=== PATIENT | female | born 1980 | race Caucasian/White ===

== ENCOUNTER 2021-09-05 12:30 | Emergency (ER) | payer BC ==
[~2021-09-05] VITALS: Ht 162.6 cm; Wt 56.7 kg
[2021-09-05 14:00] VITALS: BP_SYST 133
--- NOTE | 2021-09-05 14:31 | NUR ---
Pt presented to ED via ems with reported c/o attempted SI. Pt states she took approx 20 tablets of Tylenol PM between 1200 and 1900 on 09/04/2021 with intent to go to sleep and not wake up. Pt has previous hx of depression and psychiatric hospitalization. Pt in gown with room secured and SI procautions in place. Pt denies denies visual and auditory hallucinations. Pt AOx4, GCS 15 at time of interaction. Will continue to monitor pt.
--- NOTE | 2021-09-05 14:36 | NUR ---
ED doctor at bedside.
--- NOTE | 2021-09-05 14:37 | NUR ---
Pt was wanded by security.
[2021-09-05 14:57] LABS: HEMOGLOBIN 13.5 g/dL (12.0-16.0); WHITE BLOOD COUNT (AUTO) 6.5 K/uL (4.8-10.8)
[2021-09-05 15:00] LABS: ANION GAP 6 (5-15); CALCIUM 8.2 mg/dL (8.4-11.0); CHLORIDE 106 mmol/L (98-107); GLUCOSE 82 mg/dL (70-99); POTASSIUM 4.8 mmol/L (3.5-5.1); SODIUM SERUM 139 mmol/L (136-145); UREA NITROGEN, BLOOD 9 mg/dL (8-21)
[2021-09-05 15:02] LABS: GFR AFRICAN AMERICAN 88 mL/min (>90)
[2021-09-05 15:05] LABS: BASOPHILS # (AUTO) 0.1 K/uL (0.0-0.2); EOSINOPHILS % (AUTO) 0.7 % (0.0-4.0); HEMATOCRIT 39.1 % (36-48); LYMPHOCYTES # (AUTO) 1.6 K/uL (1.0-5.5); MEAN CORPUSCULAR HEMOGLOBIN 30 pg (27-31); MEAN CORPUSCULAR HGB CONC 35 % (32-36); MEAN CORPUSCULAR VOLUME 87 fL (79.0-98.0); MONOCYTES # (AUTO) 0.6 K/uL (0.0-1.0); MONOCYTES % (AUTO) 8.5 % (1.7-9.3); NEUTROPHILS # (AUTO) 4.3 K/uL (1.8-7.7); NEUTROPHILS % (AUTO) 65.8 % (40.0-70.0); PLATELET COUNT (AUTO) 208 K/uL (130-430); RED BLOOD CELL COUNT(AUTO) 4.48 MIL/uL (4.2-6.2); RED CELL DISTRIBUTION WIDTH 13.3 % (9.0-15.0)
[2021-09-05 15:06] LABS: CHOLESTEROL 164 mg/dL (<200); HDL CHOLESTEROL 51 mg/dL (>55); LDL CHOLESTEROL 95 mg/dL (<100); TRIGLYCERIDES 64 mg/dL (30-150)
[2021-09-05 15:15] LABS: ACETAMINOPHEN 3 ug/mL (1-30); ALANINE AMINOTRANSFERASE 15 U/L (12-78); ALBUMIN 3.7 g/dL (3.4-4.8); ASPARTATE AMINOTRANSFERASE 15 U/L (10-37); TOTAL BILIRUBIN 0.3 mg/dL (0.0-1.0)
[2021-09-05 15:15] LABS: BILIRUBIN,URINE NEGATIVE (NEGATIVE); BLOOD, URINE NEGATIVE (NEGATIVE); CLARITY/URINE CLEAR (CLEAR); COLOR,URINE YELLOW (YELLOW); GLUCOSE,URINE NEGATIVE (NEGATIVE); KETONES,URINE 1+ (NEGATIVE); LEUKOCYTE ESTERASE ,URINE NEGATIVE (NEGATIVE); NITRITE, URINE NEGATIVE (NEGATIVE); PROTEIN URINE NEGATIVE (NEGATIVE); UROBILINOGEN,URINE 0.2 (0.2-1.0)
[2021-09-05 15:27] LABS: BARBITURATE, URINE NEGATIVE (NEG <=200); BENZODIAZEPINE, URINE NEGATIVE (NEG <=150); CANNABINOID, URINE NEGATIVE (NEG <=50); COCAINE, URINE NEGATIVE (NEG <=150); METHAMPHETAMINES SCREEN,URINE NEGATIVE (NEG <=500); OPIATE, URINE NEGATIVE (NEG <=100); PHENCYCLIDINE SCREEN,URINE NEGATIVE (NEG <=25); UR TRICYCLIC ANTIDEPRESSANTS NEGATIVE (NEG <=300); URINE AMPHETAMINE NEGATIVE (NEG <=500); URINE METHADONE NEGATIVE (NEG <=200); URINE OXYCODONE SCREEN NEGATIVE (NEG <=100); URINE PROPOXYPHENE SCREEN NEGATIVE (NEG <=300)
[2021-09-05 16:14] LABS: ALCOHOL, BLOOD < 3 mg/dL (<10)
--- NOTE | 2021-09-05 16:21 | NUR ---
Pt in view of nurses station. Pt in no acute distress at this time. Will continue to monitor pt.
--- NOTE | 2021-09-05 18:10 | NUR ---
COVID AND MRSA SAMPLES SENT TO LAB 17:47.
--- NOTE | 2021-09-05 18:14 | NUR ---
Pt given a lunch box after pt requested something to eat
[2021-09-05 18:48] VITALS: BP_SYST 120
--- NOTE | 2021-09-05 18:49 | NUR ---
Pt in room crying at this time. Pt states that she needs something to help take the edge off. ED physician notified. Will continue to monitor pt
[2021-09-05] MEDS ORDERED: LORazepam 1 MG TABLET PO ONE (19:15)
--- NOTE | 2021-09-05 19:15 | NUR ---
Patient to be transferred to [place]. Is being transferred due to higher level of care. Receiving facility has accepting physician and available space. ER physician has signed transfer form. Patient or responsible democrat has agreed to transfer and signed form. Patient belongings inventoried and will be sent with patient. Copy of nursing notes, lab reports, EKG, Physicians Orders and X-rays to be sent with patient. Report called to INTAKE at receiving facility. Receiving physician WITH ROOM ASSIGNMENT. [facility] ambulance service has been called for transfer. ETA is 2200.
--- NOTE | 2021-09-05 19:45 | NUR ---
ASSUMED CARE OF PT AT THIS TIME. PT TEARFUL AND WANTS HER ATIVAN. WILL FOLLOW THROUGH WITH ORDERS. PT DENIES ANY PAIN. SEE ASSESSMENT. AWAITING TRANSPORT TO FACILITY PT IS 5150. PT IN LOS TO NURSES STATION. WILL CONTINUE TO MONITOR PAIN/COMFORT. Addendum: 09/06/21 at 0334 by [email or web address] PT NOT 5150 PT WAS VOLUNTARY HOLD GOING TO [facility]
--- NOTE | 2021-09-05 20:45 | NUR ---
PT RESTING. AWAITING TRANSPORT. NO C/O PAIN AND OR HAS ANY NEEDS AT THIS TIME. WILL CONTINUE TO MONITOR.
--- NOTE | 2021-09-05 21:45 | NUR ---
PT RESTING. NO CHANGE IN PT STATUS AT THIS TIME. AWAITING TRANSPORT. WILL CONTINUE TO MONITOR PAIN/COMFORT.
--- NOTE | 2021-09-05 23:30 | NUR ---
REPORT CALLED TO FOZIA RODRIGUEZ WITH FULL RETURNED [facility] UNDERSTANDING. ALSO REPORT GIVEN TO EMT WITH AMBULANCE COMPANY. PT GOING TO [facility]. NO S/S OF DISTRESS NOTED. PT DENIES ANY PAIN AT THIS TIME.
== END 2021-09-05 23:30 ==
LOC: SED 12:30
DX: T39.1X2A Poisoning by 4-Aminophenol derivatives, intentional self-harm, initial encounter (principal); Z79.899 Other long term (current) drug therapy; Y92.89 Other specified places as the place of occurrence of the external cause
CPT/HCPCS: 36415; 80053; 80061; 80307; 81003; 81025; 83036; 85025; 87081; 87426; 99285; G0480; G0481; G0482